=== PATIENT | female | born 1945 | race Caucasian/White ===

== ENCOUNTER 2024-01-01 12:03 | Outpatient (OUT) | payer MEDICARE, SELFPAY ==
[2024-01-01 13:03] LABS: Estimated Average Glucose 151 mg/dL; Glycohemoglobin A1C 6.9 % (4.5-6.2)
[2024-01-01 13:07] LABS: Microalbumin Urine Random 11.5 mg/dL (<=30.0)
[2024-01-01 13:10] LABS: Alanine Aminotransferase 28 U/L (14-59); Anion Gap 15.3; Aspartate Amino Transferase 32 U/L (15-37); BUN Creatinine Ratio 8.9; Calcium 9.6 mg/dL (8.5-10.1); Carbon Dioxide 25.8 mmol/L (21.0-32.0); Chloride 101 mmol/L (98-107); Chol HDL Ratio 3.8; Cholesterol 207 mg/dL (<=200); Estimated GFR (African America 39 (>=60); Estimated GFR (Non-African Ame 32 (>=60); Glucose 138 mg/dL (74-106); HDL Cholesterol 54 mg/dL (40-60); Potassium 4.1 mmol/L (3.5-5.1); Sodium 138 mmol/L (136-145); Triglycerides 235 mg/dL (<=150)
[2024-01-01 13:50] LABS: Basophils Absolute Auto 0.1 10^3/uL (0.0-0.1); Eosinophils Absolute Auto 0.1 10^3/uL (0.0-0.7); Eosinophils Percent Auto 1.4 % (0.9-7.0); Hematocrit 39.1 % (36.0-48.0); Hemoglobin 12.6 g/dL (12.0-16.0); Immature Granulocytes Abs Auto 0.04 10^3/uL (0.00-0.03); Immature Granulocytes Pct Auto 0.8 % (0.0-0.5); Lymphocytes Absolute Auto 1.3 10^3/uL (1.2-3.8); Lymphocytes Percent Auto 24.9 % (20.5-60.0); Mean Corpuscular HGB Conc 32.2 g/dL (29.9-35.2); Mean Corpuscular Hemoglobin 28.8 pg (26.7-34.0); Mean Corpuscular Volume 89.3 fL (81.0-99.0); Mean Platelet Volume 10.7 fL (9.5-13.5); Monocytes Absolute Auto 0.6 10^3/uL (0.3-0.8); Monocytes Percent Auto 12.7 % (1.7-12.0); Neutrophils Percent Auto 59.2 % (43.0-75.0); Platelet Count 242 10^3/uL (150-450); Red Blood Count 4.38 10^6/uL (4.20-5.40); Red Cell Distribution Width 13.3 % (11.0-15.0)
== END 2024-01-01 12:04 | disposition home or self-care (01) ==
LOC: LAB 12:12
DX: E11.69 Type 2 diabetes mellitus with other specified complication (principal)
CPT/HCPCS: 36415; 80048; 80061; 82043; 83036; 84450; 84460; 85025